=== PATIENT | male | born 1965 | race Caucasian/White ===

== ENCOUNTER 2024-01-12 09:35 | Day surgery (SDC) | payer OTHER ==
[2024-01-12] MEDS ORDERED: Acetaminophen/Codeine 300-30 MG Tab PO PRN (09:45)
[2024-01-12] MEDS ORDERED: Acetaminophen 325 MG Tab PO PRN (09:45)
[2024-01-12] MEDS ORDERED: Ondansetron 4 MG/2 ML SDV IVPUSH PRN (09:45)
[2024-01-12] MEDS: Timolol Maleate 0.5% Ophth Soln 5 ML Bottle EYERT ONE (09:49)
[2024-01-12] MEDS: Phenylephrine 10% Ophth Soln 5 ML Bot EYERT ONE (09:49)
[2024-01-12] MEDS: Tropicamide 1% Ophth Soln 15 ML Bottle EYERT ONE (09:49)
[2024-01-12] MEDS: Moxifloxacin 0.5% Ophth Soln 3 ML Bottle EYERT ONE (09:49)
[2024-01-12] MEDS: Proparacaine 0.5% Ophth Soln 15 ML Bottle EYERT ONE ×2 (09:50→10:30)
[2024-01-12] MEDS: Povidone-Iodine 5% Sterile Ophth Soln 30 ML Bottle EYERT ONE ×2 (09:50→10:31)
[2024-01-12] MEDS: Sodium Chloride 0.9% 10 ML Syringe FLUSH PRN (09:50)
[2024-01-12] MEDS: Cataract Ophth Solution EYERT ONE (09:50)
[2024-01-12] MEDS: Vancomycin 500 MG SDV EYERT ONE (10:30)
[2024-01-12] MEDS: Diclofenac Sodium 0.1% Ophth Soln 5 ML Bottle EYERT ONE (10:30)
[2024-01-12] MEDS: Dexamethasone/Neomycin/Polymyxin B Ophth Oint 3.5 GM Tube EYERT ONE (10:30)
[2024-01-12] MEDS: Lidocaine 1% 30 ML SDV ONE (10:30)
[2024-01-12] MEDS: Apraclonidine 0.5% Ophth Soln 5 ML Bot EYERT ONE (10:30)
[2024-01-12 11:19] VITALS: BP 120/78; PULSE 56
== END 2024-01-12 11:14 | disposition home or self-care (01) ==
LOC: DL.SDS 09:35
PROVIDERS: ATTEND Ophthalmology
DX: H25.811 Combined forms of age-related cataract, right eye (principal); J45.909 Unspecified asthma, uncomplicated; F32.A Depression, unspecified; F41.9 Anxiety disorder, unspecified; Z79.899 Other long term (current) drug therapy
CPT/HCPCS: 66984; A9270; J3370; 00142; J3490

== ENCOUNTER 2024-02-07 07:20 | Day surgery (SDC) | payer OTHER ==
[2024-02-07] MEDS ORDERED: Acetaminophen/Codeine 300-30 MG Tab PO PRN (07:30)
[2024-02-07] MEDS ORDERED: Acetaminophen 325 MG Tab PO PRN (07:30)
[2024-02-07] MEDS ORDERED: Ondansetron 4 MG/2 ML SDV IVPUSH PRN (07:30)
[2024-02-07] MEDS: Sodium Chloride 0.9% 10 ML Syringe FLUSH PRN (08:00)
[2024-02-07] MEDS: Proparacaine 0.5% Ophth Soln 15 ML Bottle EYELF ONE ×2 (08:02→09:43)
[2024-02-07] MEDS: Moxifloxacin 0.5% Ophth Soln 3 ML Bottle EYELF ONE (08:03)
[2024-02-07] MEDS: Povidone-Iodine 5% Sterile Ophth Soln 30 ML Bottle EYELF ONE ×2 (08:04→09:42)
[2024-02-07] MEDS: Tropicamide 1% Ophth Soln 15 ML Bottle EYELF ONE (08:05)
[2024-02-07] MEDS: Timolol Maleate 0.5% Ophth Soln 5 ML Bottle EYELF ONE (08:06)
[2024-02-07] MEDS: Phenylephrine 10% Ophth Soln 5 ML Bot EYELF ONE (08:06)
[2024-02-07] MEDS: Cataract Ophth Solution EYELF ONE (08:07)
[2024-02-07] MEDS: Lidocaine 1% 30 ML SDV ONE (09:41)
[2024-02-07] MEDS: Apraclonidine 0.5% Ophth Soln 5 ML Bot EYELF ONE (09:42)
[2024-02-07] MEDS: Diclofenac Sodium 0.1% Ophth Soln 5 ML Bottle EYELF ONE (09:43)
[2024-02-07] MEDS: Dexamethasone/Neomycin/Polymyxin B Ophth Oint 3.5 GM Tube EYELF ONE (09:44)
[2024-02-07] MEDS: Vancomycin 500 MG SDV EYELF ONE (09:44)
[2024-02-07 10:38] VITALS: BP 128/84; PULSE 62
== END 2024-02-07 10:30 | disposition home or self-care (01) ==
LOC: DL.SDS 07:20
PROVIDERS: ATTEND Ophthalmology
DX: E11.36 Type 2 diabetes mellitus with diabetic cataract (principal); H25.812 Combined forms of age-related cataract, left eye; F41.9 Anxiety disorder, unspecified; F32.A Depression, unspecified; K21.9 Gastro-esophageal reflux disease without esophagitis; I10 Essential (primary) hypertension; E66.9 Obesity, unspecified; J45.909 Unspecified asthma, uncomplicated; Z79.899 Other long term (current) drug therapy; Z68.33 Body mass index [BMI] 33.0-33.9, adult
CPT/HCPCS: 66984; A9270; J3370; 00142; J3490

== ENCOUNTER 2024-03-01 06:26 | Day surgery (SDC) | payer OTHER ==
[~2024-03-01 06:26] MED LIST: Midazolam 1 MG/ML 2 ML SDV ONE; fentaNYL 100 MCG/2 ML SDV ONE
[2024-03-01] MEDS ORDERED: fentaNYL 100 MCG/2 ML SDV IV ONE (06:27)
[2024-03-01] MEDS ORDERED: Midazolam 1 MG/ML 2 ML SDV IV ONE (06:27)
[2024-03-01] MEDS: Dextrose 5%-0.45% NaCl 1,000 ML IV SCH (06:56)
[2024-03-01] MEDS: fentaNYL 100 MCG/2 ML SDV IV ONE ×2 (07:26→07:27)
[2024-03-01] MEDS: Midazolam 1 MG/ML 2 ML SDV IV ONE ×2 (07:27→07:28)
[2024-03-01 08:42] VITALS: BP 140/83; PULSE 60
== END 2024-03-01 09:10 | disposition home or self-care (01) ==
LOC: DL.ENDO 06:26
PROVIDERS: ATTEND Internal Medicine Gastroenterology
DX: R12 Heartburn (principal); K21.9 Gastro-esophageal reflux disease without esophagitis; F41.9 Anxiety disorder, unspecified; J45.909 Unspecified asthma, uncomplicated; F32.A Depression, unspecified; E66.9 Obesity, unspecified; Z68.33 Body mass index [BMI] 33.0-33.9, adult
CPT/HCPCS: 43239; 87077; J2250; J3010; J7799

== ENCOUNTER 2024-03-15 05:49 | Day surgery (SDC) | payer OTHER ==
[2024-03-15] MEDS ORDERED: Midazolam 1 MG/ML 2 ML SDV IV ONE (05:50)
[2024-03-15] MEDS ORDERED: fentaNYL 100 MCG/2 ML SDV IV ONE (05:50)
[2024-03-15] MEDS ORDERED: fentaNYL 100 MCG/2 ML SDV ONE (06:15)
[2024-03-15] MEDS ORDERED: Midazolam 1 MG/ML 2 ML SDV ONE (06:15)
[2024-03-15] MEDS: Dextrose 5%-0.45% NaCl 1,000 ML IV SCH (06:19)
[2024-03-15] MEDS: fentaNYL 100 MCG/2 ML SDV IV ONE ×3 (07:05→07:15)
[2024-03-15] MEDS: Midazolam 1 MG/ML 2 ML SDV IV ONE ×6 (07:06→07:13)
[2024-03-15 08:31] VITALS: BP 137/91; PULSE 67
== END 2024-03-15 08:42 | disposition home or self-care (01) ==
LOC: DL.ENDO 05:49
PROVIDERS: ATTEND Internal Medicine Gastroenterology
DX: Z12.11 Encounter for screening for malignant neoplasm of colon (principal); K21.9 Gastro-esophageal reflux disease without esophagitis; J45.909 Unspecified asthma, uncomplicated; F41.9 Anxiety disorder, unspecified; E66.9 Obesity, unspecified; Z68.33 Body mass index [BMI] 33.0-33.9, adult
CPT/HCPCS: 45378; J2250; J3010; J7799

== ENCOUNTER 2024-07-12 14:36 | Emergency (ER) | payer OTHER | END 2024-07-12 15:29 | disposition home or self-care (01) | LOC: DL.ED 14:36 | DX: S09.90XA Unspecified injury of head, initial encounter (principal); I10 Essential (primary) hypertension; K21.9 Gastro-esophageal reflux disease without esophagitis; J44.9 Chronic obstructive pulmonary disease, unspecified; E78.00 Pure hypercholesterolemia, unspecified; E66.9 Obesity, unspecified; E03.9 Hypothyroidism, unspecified; Z79.899 Other long term (current) drug therapy; V49.40XA Driver injured in collision with unspecified motor vehicles in traffic accident, initial encounter | CPT/HCPCS: 70450; 72125; 99283; 99284 ==

== ENCOUNTER 2025-03-16 06:56 | Emergency (ER) | payer OTHER ==
[2025-03-16] MEDS ORDERED: Sodium Chloride 0.9% 10 ML Syringe FLUSH PRN (07:22)
[2025-03-16 07:30] LABS: BASOPHILS PERCENT AUTO 0.1 % (0.0-1.0); EOSINOPHILS PERCENT AUTO 0.1 % (1.0-3.0); LYMPHOCYTES PERCENT AUTO 11.4 % (20.5-50.1); MONOCYTES PERCENT AUTO 7.3 % (2-8); NEUTROPHILS PERCENT AUTO 81.1 % (42.2-75.2); PLATELET COUNT,PLT 239 10^3/uL (150-450); RED BLOOD CELL COUNT 5.01 10^6/uL (4.6-6.2); WHITE BLOOD CELL COUNT,WBC 15.4 10^3/uL (5.0-10.0)
[2025-03-16 07:43] LABS: A/G RATIO 1.3; ALANINE AMINOTRANSFERASE,ALT 44.0 U/L (16-63); ASPARTATE AMNIOTRANSFERASE,AST 22.0 U/L (15-37); BILIRUBIN TOTAL 1.3 mg/dL (0.2-1.0); BLOOD UREA NITROGEN,BUN 11.0 mg/dL (7-18); CARBON DIOXIDE,CO2 27.0 mmol/L (21-32); CHLORIDE,CL 96.0 mmol/L (98-107); CREATININE 0.74 mg/dL (0.70-1.30); EST CRCL DRUG DOSING (CG) 115.06 mL/min; GLUCOSE RANDOM 198.0 mg/dL (70-99); POTASSIUM,K 3.8 mmol/L (3.5-5.1); PROTEIN TOTAL,TP 7.7 g/dL (6.4-8.2); SODIUM,NA 132.0 mmol/L (136-145)
[2025-03-16 07:44] LABS: ESTIMATED GFR 103.0 mL/min (>=60)
[2025-03-16] MEDS: Iopamidol 612 MG/ML 100 ML Bottle IVPUSH ONE (09:06)
[2025-03-16] MEDS: metroNIDAZOLE/Normal Saline 500 MG in Premix Bag 1 BAG IV ONE (11:12)
[2025-03-16] MEDS: Ciprofloxacin in D5W 400 MG in Premix Bag 1 BAG IV ONE (11:14)
[2025-03-16 11:53] VITALS: BP 139/80; PULSE 72
== END 2025-03-16 12:25 ==
LOC: DL.ED 06:56
DX: K80.00 Calculus of gallbladder with acute cholecystitis without obstruction (principal); I10 Essential (primary) hypertension; E78.00 Pure hypercholesterolemia, unspecified; J45.909 Unspecified asthma, uncomplicated; E66.9 Obesity, unspecified; Z68.32 Body mass index [BMI] 32.0-32.9, adult; Z79.899 Other long term (current) drug therapy
CPT/HCPCS: 36415; 74177; 76705; 80053; 83690; 83735; 85025; 96365; 96368; 96375; 99285; J0744; J1836; J2270; Q9967; 99284